=== PATIENT | male | born 1960 | race Caucasian/White ===

== ENCOUNTER → 2018-01-17 | Outpatient (CLI) | payer OTHER ==
[~2018-01-17] MED LIST: ACETAMINOPHEN-1 EAC1 PO; ALBUTEROL2.5 MG/31 INH; AMOXICILLIN875 MG PO; ANTIBIOTIC; ASPIR 8181 MG PO; CARVEDILOL12.5 MG PO; CEFUROXIME250 MG PO; CYCLOBENZAPRINE5 MG PO; LEXAPRO 10 MG T10 M1 PO; LEXAPRO20 MG PO; LISINOPRIL5 MG PO; MIRALAX17 GM PO; NEBULIZER MISCELL; NORCO 5-325 TA1 EACH; NORCO 5-325 TA1 EACH PO; NORVASC10 MG PO; NORVASC5 MG PO; PLAVIX 75 MG TA75 M1 PO; PREDNISONE 20 M20 M1 PO; ROBAXIN500 MG PO; SINGULAIR 10 MG10 M1 PO; TOPAMAX 25 MG T25 M1 PO; TORADOL 10 MG T10 MG PO; TRANSDERM-SCO1 PATC1 TD; XANAX 0.25 MG0.25 MG PO; XANAX 0.5 MG0.5 MG PO
== END ==
LOC: M.RAD 16:16
DX: J44.9 Chronic obstructive pulmonary disease, unspecified (principal); M54.6 Pain in thoracic spine; R05 Cough

== ENCOUNTER → 2018-06-17 | Outpatient (CLI) | payer OTHER ==
[2018-06-17 11:55] LABS: HEMATOCRIT 40.8 % (42.0-52.0); HEMOGLOBIN 13.7 gm/dL (14.0-18.0); MCH 29.6 pg (26.0-34.0); MCHC 33.5 g/dL (28.0-37.0); MCV 88.4 fL (80.0-100.0); MPV 7.7 fl. (7.2-11.1); RBC 4.62 mil/uL (4.50-6.00); RDW-CV 13.3 % (10.5-14.5); WBC 7.2 thou/uL (4.0-11.0)
[2018-06-17 12:26] LABS: CALCIUM 8.9 mg/dL (8.5-10.1); CREATININE 0.7 mg/dL (0.6-1.3); POTASSIUM 3.9 mmol/L (3.5-5.1); TOTAL BILIRUBIN 0.3 mg/dL (<0.1-1.0); TOTAL PROTEIN 7.9 g/dL (6.4-8.2)
== END ==
LOC: M.LAB 11:26
PROVIDERS: Nurse Practitioner Family
DX: I10 Essential (primary) hypertension (principal); J44.9 Chronic obstructive pulmonary disease, unspecified; R06.09 Other forms of dyspnea; R60.0 Localized edema; R06.02 Shortness of breath; R53.83 Other fatigue

== ENCOUNTER 2020-03-13 16:37 | Emergency (ER) | payer OTHER ==
[~2020-03-13] VITALS: Ht 175.3 cm; Wt 108.0 kg
[2020-03-13 17:07] LABS: ABSOLUTE BASOPHILS 0.1 thou/uL (0.0-0.2); ABSOLUTE EOSINOPHILS 0.5 thou/uL (0.0-0.7); ABSOLUTE LYMPHOCYTES 2.2 thou/uL (0.8-5.3); ABSOLUTE MONOCYTES 0.8 thou/uL (0.0-1.2); ABSOLUTE NEUTROPHILS 5.2 thou/uL (1.6-8.1); BASOPHILS 0.9 %; EOSINOPHILS 5.5 %; HEMATOCRIT 44.1 % (42.0-52.0); HEMOGLOBIN 15.3 gm/dL (14.0-18.0); LYMPHOCYTES 24.9 %; MCH 30.3 pg (26.0-34.0); MCHC 34.8 g/dL (28.0-37.0); MCV 87.1 fL (80.0-100.0); MONOCYTES 8.8 %; MPV 8.1 fl. (7.2-11.1); NUCLEATED RBCS 0 /100WBC; PLATELET COUNT* 235 thou/uL (150-400); POLYS 59.9 %; RBC 5.06 mil/uL (4.50-6.00); WBC 8.6 thou/uL (4.0-11.0)
[2020-03-13 17:12] LABS: CALCIUM 8.6 mg/dL (8.5-10.1); CREATININE 1.2 mg/dL (0.6-1.3); POTASSIUM 3.6 mmol/L (3.5-5.1)
[2020-03-13 17:20] LABS: APTT 22.4 Seconds (25.0-31.3); PROTIME 10.4 Seconds (9.20-11.50)
[2020-03-13 17:26] LABS: CK-MB MASS 6.9 ng/mL (<0.5-3.6); MAGNESIUM 2.1 mg/dL (1.8-2.4); TOTAL BILIRUBIN 0.3 mg/dL (<0.1-1.0); TOTAL PROTEIN 7.9 g/dL (6.4-8.2)
[2020-03-13 18:08] VITALS: BP 136/80
--- NOTE | 2020-03-14 09:57 | EKG ---
[place] [address] ELECTROCARDIOGRAM REPORT Name: IVANA MOREL Room: [facility]#: [id number] Admission: 03/13/20 Attend Phys: Discharge: 03/13/20 Date of : 62 Date of Service: 03/13/20 1642 Report #: [id number] THIS REPORT FOR: //name// [facility] ED Test Date: 2020-03-13 Test Time: 16:42:26 Pat Name: IVANA MOREL Department: Room: Gender: [employer]: : 1960 Requested By: Destin Almonte Order Number: [id number] MD: Lenny Erickson Measurements Intervals [place] Rate: 100 P: 50 AR: 174 QRS: 22 QRSD: 133 T: -2 QT: 360 QTc: 465 Interpretive Statements Sinus tachycardia Left atrial enlargement Right bundle branch block Left ventricular hypertrophy Inferior infarct, old Compared to ECG 06/06/2017 10:39:58 Atrial abnormality now present Sinus rate has increased Myocardial infarct finding still present Electronically Signed On 03-14-2020 9:57:02 CDT by Lenny Erickson [email or web address] <ELECTRONICALLY SIGNED> By: Lenny Erickson MD, [facility] 03/14/20 0957 164 164 Lenny Erickson MD, [facility] /EPI
== END 2020-03-13 18:08 | disposition home or self-care (01) ==
LOC: M.ERS 16:37
PROVIDERS: Family Medicine
DX: R07.89 Other chest pain (principal); I10 Essential (primary) hypertension; J44.9 Chronic obstructive pulmonary disease, unspecified; Z95.5 Presence of coronary angioplasty implant and graft; Z86.73 Personal history of transient ischemic attack (TIA), and cerebral infarction without residual deficits

== ENCOUNTER → 2020-05-10 | Outpatient (CLI) | payer OTHER, BC | LOC: M.RAD 12:20 | PROVIDERS: ATTEND Family Medicine | DX: M77.32 Calcaneal spur, left foot (principal); M25.562 Pain in left knee; M25.572 Pain in left ankle and joints of left foot; M25.772 Osteophyte, left ankle ==

== ENCOUNTER 2020-09-21 21:00 | Inpatient (IN) | payer OTHER ==
[~2020-09-21] VITALS: Ht 177.8 cm; Wt 105.2 kg
[~2020-09-21 21:00] MED LIST changes: -ASPIR 8181 MG PO; +BAYER CHEWABLE81 MG PO
[2020-09-21 21:04] VITALS: BP 152/92
[2020-09-21] MEDS ORDERED: JARDIANCE25 MG PO (21:11)
[2020-09-21] MEDS ORDERED: DILTIAZEM ER240 MG PO (21:11)
[2020-09-21 21:32] LABS: URINE BILIRUBIN NEGATIVE (Negative); URINE BLOOD TRACE (Negative); URINE CLARITY CLEAR; URINE COLOR YELLOW; URINE GLUCOSE-RANDOM 3+ (Negative); URINE KETONES NEGATIVE (Negative); URINE LEUKOCYTES-REFLEX NEGATIVE (Negative); URINE NITRITE-REFLEX NEGATIVE (Negative); URINE PROTEIN NEGATIVE (Negative); URINE SPECIFIC GRAVITY 1.025 (1.005-1.030); URINE UROBILINOGEN 0.2 E.U./dl (0.2-1.0)
[2020-09-21 21:36] LABS: ABSOLUTE EOSINOPHILS 0.2 thou/uL (0.0-0.7); ABSOLUTE LYMPHOCYTES 1.6 thou/uL (0.8-5.3); ABSOLUTE MONOCYTES 1.1 thou/uL (0.0-1.2); ABSOLUTE NEUTROPHILS 4.3 thou/uL (1.6-8.1); BASOPHILS 0.4 %; HEMATOCRIT 46.7 % (42.0-52.0); HEMOGLOBIN 15.6 gm/dL (14.0-18.0); LYMPHOCYTES 22.4 %; MCH 29.1 pg (26.0-34.0); MCHC 33.5 g/dL (28.0-37.0); MCV 86.9 fL (80.0-100.0); MPV 8.2 fl. (7.2-11.1); NUCLEATED RBCS 0 /100WBC; PLATELET COUNT* 201 thou/uL (150-400); POLYS 59.2 %; RBC 5.38 mil/uL (4.50-6.00); RDW-CV 13.9 % (10.5-14.5); WBC 7.2 thou/uL (4.0-11.0)
[2020-09-21 21:38] LABS: CALCIUM 8.6 mg/dL (8.5-10.1); CREATININE 0.8 mg/dL (0.6-1.3); POTASSIUM 3.4 mmol/L (3.5-5.1)
[2020-09-21 21:43] LABS: ALBUMIN 3.6 g/dL (3.4-5.0); TOTAL BILIRUBIN 0.3 mg/dL (<0.1-1.0); TOTAL PROTEIN 7.4 g/dL (6.4-8.2)
[2020-09-21 23:39] LABS: APTT 26.2 Seconds (25.0-31.3)
[2020-09-22] VITALS: BP 110/66
[2020-09-22 00:10] VITALS: BP 144/70
[2020-09-22 00:45] VITALS: BP 137/78
[2020-09-22 04:37] LABS: HEMATOCRIT 43.6 % (42.0-52.0); HEMOGLOBIN 14.6 gm/dL (14.0-18.0); MCHC 33.5 g/dL (28.0-37.0); MCV 86.5 fL (80.0-100.0); MPV 7.9 fl. (7.2-11.1); RBC 5.04 mil/uL (4.50-6.00); RDW-CV 13.8 % (10.5-14.5); WBC 6.1 thou/uL (4.0-11.0)
[2020-09-22 04:43] LABS: CALCIUM 8.6 mg/dL (8.5-10.1); CREATININE 0.7 mg/dL (0.6-1.3); MAGNESIUM 2.2 mg/dL (1.8-2.4); PHOSPHORUS* 4.1 mg/dL (2.5-4.9); POTASSIUM 3.2 mmol/L (3.5-5.1)
--- NOTE | 2020-09-22 09:07 | EKG ---
[place] [address] ELECTROCARDIOGRAM REPORT Name: MARIA TERESAIVANACHANELLE SPANN Room: [address] M[address]R.#: [id number] Admission: 09/21/20 Attend Phys: Bailey Caputo, Discharge: Date of : 62 Date of Service: 09/21/20 2325 Report #: [id number] THIS REPORT FOR: //name// [facility] ED Test Date: 2020-09-21 Test Time: 23:25:06 Pat Name: IVANA MOREL Department: Room: [facility] Gender: M Outsole Caser: FLAVIO : 1960 Requested By: Brook Obrien Order Number: [id number] MD: Ac Melgoza Measurements Intervals [place] Rate: 89 P: 45 NC: 202 QRS: 9 QRSD: 127 T: -5 QT: 385 QTc: 469 Interpretive Statements Sinus rhythm Borderline prolonged NC interval Probable left atrial enlargement Right bundle branch block Inferior infarct, age indeterminate Compared to ECG 03/13/2020 16:42:26 Sinus tachycardia no longer present Left ventricular hypertrophy no longer present Myocardial infarct finding still present Electronically Signed On 09-22-2020 9:07:42 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
[2020-09-22 15:52] VITALS: BP 92/32
[2020-09-22 22:00] VITALS: BP 82/59
[2020-09-23 04:48] LABS: ABSOLUTE EOSINOPHILS 0.6 thou/uL (0.0-0.7); ABSOLUTE LYMPHOCYTES 1.5 thou/uL (0.8-5.3); ABSOLUTE MONOCYTES 0.5 thou/uL (0.0-1.2); ABSOLUTE NEUTROPHILS 3.2 thou/uL (1.6-8.1); BASOPHILS 0.4 %; EOSINOPHILS 9.7 %; HEMATOCRIT 39.1 % (42.0-52.0); HEMOGLOBIN 13.1 gm/dL (14.0-18.0); LYMPHOCYTES 25.9 %; MCH 29.3 pg (26.0-34.0); MCHC 33.4 g/dL (28.0-37.0); MCV 87.6 fL (80.0-100.0); MONOCYTES 8.1 %; MPV 7.9 fl. (7.2-11.1); NUCLEATED RBCS 0 /100WBC; PLATELET COUNT* 174 thou/uL (150-400); POLYS 55.9 %; RBC 4.46 mil/uL (4.50-6.00); WBC 5.8 thou/uL (4.0-11.0)
[2020-09-23 05:36] LABS: ALBUMIN 2.7 g/dL (3.4-5.0); CREATININE 0.6 mg/dL (0.6-1.3); POTASSIUM 3.8 mmol/L (3.5-5.1); TOTAL BILIRUBIN 0.4 mg/dL (<0.1-1.0); TOTAL PROTEIN 5.6 g/dL (6.4-8.2)
[2020-09-23 07:45] VITALS: BP 161/56
[2020-09-23 09:32] LABS: HEMATOCRIT 39.2 % (42.0-52.0); HEMOGLOBIN 12.9 gm/dL (14.0-18.0); MCH 28.5 pg (26.0-34.0); MCV 86.6 fL (80.0-100.0); MPV 7.9 fl. (7.2-11.1); RBC 4.53 mil/uL (4.50-6.00); RDW-CV 13.6 % (10.5-14.5); WBC 5.5 thou/uL (4.0-11.0)
[2020-09-23 09:41] LABS: CALCIUM 7.6 mg/dL (8.5-10.1); CREATININE 0.7 mg/dL (0.6-1.3); POTASSIUM 3.3 mmol/L (3.5-5.1)
[2020-09-23 15:45] VITALS: BP 110/68
[2020-09-23 20:26] VITALS: BP 116/58
[2020-09-24 04:08] LABS: ABSOLUTE EOSINOPHILS 0.7 thou/uL (0.0-0.7); ABSOLUTE LYMPHOCYTES 2.2 thou/uL (0.8-5.3); ABSOLUTE MONOCYTES 0.7 thou/uL (0.0-1.2); ABSOLUTE NEUTROPHILS 3.6 thou/uL (1.6-8.1); BASOPHILS 0.6 %; EOSINOPHILS 9.4 %; HEMATOCRIT 39.9 % (42.0-52.0); HEMOGLOBIN 13.3 gm/dL (14.0-18.0); MCH 29.1 pg (26.0-34.0); MCHC 33.4 g/dL (28.0-37.0); MCV 87.1 fL (80.0-100.0); MONOCYTES 9.7 %; MPV 7.6 fl. (7.2-11.1); NUCLEATED RBCS 0 /100WBC; PLATELET COUNT* 211 thou/uL (150-400); POLYS 50.3 %; RBC 4.58 mil/uL (4.50-6.00); RDW-CV 13.9 % (10.5-14.5); WBC 7.2 thou/uL (4.0-11.0)
[2020-09-24 04:16] LABS: CALCIUM 8.3 mg/dL (8.5-10.1); CREATININE 0.7 mg/dL (0.6-1.3); POTASSIUM 3.5 mmol/L (3.5-5.1); TOTAL BILIRUBIN 0.3 mg/dL (<0.1-1.0); TOTAL PROTEIN 6.3 g/dL (6.4-8.2)
[2020-09-24 07:25] VITALS: BP 117/62
[2020-09-24 08:49] VITALS: BP 117/62
[2020-09-24] MEDS ORDERED: ZOFRAN ODT4 MG PO (09:44)
[2020-09-24] MEDS ORDERED: FLAGYL500 M1 PO ×2 (09:44→09:59)
[2020-09-24] MEDS ORDERED: CIPRO500 M1 PO ×2 (09:44→09:59)
[2020-09-24] MEDS ORDERED: PAIN RELIEVER500 MG PO (09:47)
== END 2020-09-24 10:35 | disposition home or self-care (01) | DRG 389 ==
LOC: M.ERS 21:00 → M.ORTHSURG 23:29 → M.TBA-ER 23:29 → M.ERS 09-22 00:06 → M.ORTHSURG 09-22 00:51
PROVIDERS: Internal Medicine; Personal Emergency Response Attendant; Surgery; ADMIT Internal Medicine; ATTEND Internal Medicine
DX: K56.609 Unspecified intestinal obstruction, unspecified as to partial versus complete obstruction (principal); K65.4 Sclerosing mesenteritis; I10 Essential (primary) hypertension; F32.9 Major depressive disorder, single episode, unspecified; F41.9 Anxiety disorder, unspecified; J44.9 Chronic obstructive pulmonary disease, unspecified; E87.6 Hypokalemia; E11.9 Type 2 diabetes mellitus without complications; Z20.822 Contact with and (suspected) exposure to COVID-19; K59.00 Constipation, unspecified; Z95.5 Presence of coronary angioplasty implant and graft; Z86.73 Personal history of transient ischemic attack (TIA), and cerebral infarction without residual deficits; Z79.82 Long term (current) use of aspirin; Z79.899 Other long term (current) drug therapy

== ENCOUNTER 2021-01-21 18:25 | Emergency (ER) | payer OTHER ==
[~2021-01-21] VITALS: Ht 180.3 cm; Wt 106.1 kg
[~2021-01-21 18:25] MED LIST changes: +CIPRO500 M1 PO; +DILTIAZEM ER240 MG PO; +FLAGYL500 M1 PO; +JARDIANCE25 MG PO; +PAIN RELIEVER500 MG PO; +ZOFRAN ODT4 MG PO
[2021-01-21 21:11] VITALS: BP 154/72
== END 2021-01-21 21:11 | disposition home or self-care (01) ==
LOC: M.ERS 18:25
DX: M25.562 Pain in left knee (principal); R22.42 Localized swelling, mass and lump, left lower limb; I10 Essential (primary) hypertension; Z79.82 Long term (current) use of aspirin; Z79.899 Other long term (current) drug therapy

== ENCOUNTER 2021-09-08 09:44 | Emergency (ER) | payer OTHER ==
[~2021-09-08] VITALS: Ht 175.3 cm; Wt 97.5 kg
[2021-09-08] MEDS ORDERED: TRIAMTERENE/HCT1 CA1 PO (09:53)
[2021-09-08] MEDS ORDERED: VENLAFAXINE HCL75 M2 PO (09:53)
[2021-09-08 10:54] LABS: ABSOLUTE BASOPHILS 0.1 thou/uL (0.0-0.2); ABSOLUTE EOSINOPHILS 0.2 thou/uL (0.0-0.7); ABSOLUTE LYMPHOCYTES 1.6 thou/uL (0.8-5.3); ABSOLUTE MONOCYTES 0.8 thou/uL (0.0-1.2); ABSOLUTE NEUTROPHILS 7.4 thou/uL (1.6-8.1); BASOPHILS 0.8 %; HEMOGLOBIN 15.9 gm/dL (14.0-18.0); LYMPHOCYTES 16.1 %; MCH 29.8 pg (26.0-34.0); MCHC 33.9 g/dL (28.0-37.0); MCV 88.1 fL (80.0-100.0); MONOCYTES 8.3 %; MPV 7.5 fl. (7.2-11.1); NUCLEATED RBCS 0 /100WBC; PLATELET COUNT* 258 thou/uL (150-400); POLYS 72.8 %; RBC 5.33 mil/uL (4.50-6.00); RDW-CV 13.9 % (10.5-14.5); WBC 10.2 thou/uL (4.0-11.0)
[2021-09-08 11:00] LABS: URINE BILIRUBIN NEGATIVE (Negative); URINE BLOOD NEGATIVE (Negative); URINE CLARITY CLEAR; URINE COLOR YELLOW; URINE GLUCOSE-RANDOM 3+ (Negative); URINE KETONES NEGATIVE (Negative); URINE LEUKOCYTES-REFLEX NEGATIVE (Negative); URINE NITRITE-REFLEX NEGATIVE (Negative); URINE PROTEIN NEGATIVE (Negative); URINE UROBILINOGEN 0.2 E.U./dl (0.2-1.0)
[2021-09-08 11:05] LABS: CALCIUM 9.3 mg/dL (8.5-10.1); CREATININE 0.7 mg/dL (0.6-1.3); POTASSIUM 4.2 mmol/L (3.5-5.1)
[2021-09-08 11:15] LABS: ALBUMIN 4.1 g/dL (3.4-5.0); TOTAL BILIRUBIN 0.3 mg/dL (<0.1-1.0); TOTAL PROTEIN 8.3 g/dL (6.4-8.2)
[2021-09-08 12:45] LABS: INFLUENZA A ANTIGEN Negative (Negative); INFLUENZA B ANTIGEN Negative (Negative)
[2021-09-08 14:00] VITALS: BP 148/85
--- NOTE | 2021-09-08 16:19 | EKG ---
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[facility] : 1960 Requested By: Echo Castillo Order Number: [id number] Shiva MD: Lenny Erickson Measurements Intervals [place] Rate: 76 P: 48 GA: 179 QRS: -5 QRSD: 119 T: 11 QT: 379 QTc: 427 Interpretive Statements Sinus rhythm Probable left atrial enlargement Incomplete right bundle branch block Inferior infarct, old Compared to ECG 09/21/2020 23:25:06 Incomplete right bundle-branch block now present Myocardial infarct finding still present Electronically Signed On 09-08-2021 16:19:07 [employer] by Lenny Erickson [email or web address] <ELECTRONICALLY SIGNED> By: Lenny Erickson MD, [facility] 09/08/21 1619 0959 0959 Lenny Erickson MD, [facility] /EPI
== END 2021-09-08 14:00 | disposition home or self-care (01) ==
LOC: M.ERS 09:44
PROVIDERS: Student in an Organized Health Care Education/Training Program
DX: I10 Essential (primary) hypertension (principal); Z20.822 Contact with and (suspected) exposure to COVID-19; Z79.51 Long term (current) use of inhaled steroids; Z79.82 Long term (current) use of aspirin; Z79.899 Other long term (current) drug therapy